=== PATIENT | male | born 1990 | race Caucasian/White ===

== ENCOUNTER 2017-06-12 10:50 | Outpatient (RCR) | payer BC, SELFPAY ==
--- NOTE | 2017-06-15 09:41 | HP.OTFCE_ITS ---
HP OT Functional Capacity Eval - Task Lift Floor (Occasional 1-33% of Day): 50# Floor (Frequent 34-66% of Day): 25# Floor (Constant 67-100% of Day): 10# Floor PDL: Medium Knee (Occasional 1-33% of Day): 50# Knee (Frequent 34-66% of Day): 25# Knee (Constant 67-100% of Day): 10# Knee PDL: Medium Waist (Occasional 1-33% of Day): 50# Waist (Frequent 34-66% of Day): 25# Waist (Constant 67-100% of Day): 10# Waist PDL: Medium Shoulder (Occasional 1-33% of Day): 30# Shoulder (Frequent 34-66% of Day): 15# Overhead (Occasional 1-33% of Day): 30# Overhead (Frequent 34-66% of Day): 15# - Work Activity/Posture Bending: Frequent Ability (34-66% of day) Squatting: Frequent Ability (34-66% of day) Kneeling: Occasional Ability (1-33% of day) Reaching out: Frequent Ability (34-66% of day) Reaching up: Frequent Ability (34-66% of day) Sitting: Frequent Ability (34-66% of day) Walking: Frequent Ability (34-66% of day) Standing: Frequent Ability (34-66% of day) - Reference Duration Sedentary Sedentary Light Light Light Medium Medium Medium Heavy Very Heavy Heavy Occasional (0-33% of day) Frequent (34-66% of day) Constant (67-100% of day) 10 # Negligible Negligible 15 # 8 # Negligible 20 # 10# Negli. 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 Left side more affected than right - more LE than UE. No other medical dx reported. Due to pts recent graduation from college- he had no need for a drivers license and now that he has been working he is ready to get his license- Pt reports he has no restrictions - Diagnoses Diagnoses: CP at - Symptoms Symptoms: LE tightness hamstrings - Pain Pain: denies - Work History Work History: pt is employed at [employer]- pt states he has worked there for a year. He reports she works 10 hour days and does work extra- he states his average work week is 50-60 hours. pt states he is on his feet a lot during the day and states no difficulty. Pt has no accomidations at work, no need for accomidation. 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 pt states there is one entry step. Pt reports he resides in the basement and has 15 steps to get to his room- he reports no difficutly- pt reports he is ind, with all of his bathing/dressing tasks. Pt states he does assist with cleaning, cooking and laundry. states he does carry his own laundry up and down the steps to the laundry room. - Physical Examination ROM: Noted pt demonstrates with bilateral hip flex to 100 degrees in sitting this is WFL. pt demonstrates bilateral knee flex to 100 degrees in in sitting this demo. ROM is WFL. Bilateral ankle ROM is WFL. Strength: Pt demonstrating MMT 5/5 grossly throughout. 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 Strength Average: 81.66 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 Strength Percentile: 5% Left Tar Distributor Operator Strength Average: 75.00 Left Tar Distributor Operator Strength Percentile: 6% Right Lateral Pinch Average: 19.33 Right Lateral Pinch Percentile: 10% Left Lateral Pinch Average: 18.00 Left Lateral Pinch Percentile: 25% Right Tripod Pinch Average: 16.00 Right Tripod Pinch Percentile: 10% Left Tripod Pinch Average: 14.00 Left Tripod Pinch Percentile: < 10% Sensation: denies Fine Motor: denies Balance: No loss of balance noted - Non Material Handling Activities Bending: Pt demo the ability to bend forward three times, ten times and ten times rapidly. pt can bend forward on a frequent bases. Squatting: Pt demo the ability to squat three times, ten times and ten times rapidly. pt can squat on a frequent basis. Kneeling: Pt demo the ability to kneel three times. Pt can kneel on a occasional basis. Reaching out/up: Pt demo the ability to reach up/out three times, ten times and ten times rapidly while sitting pt can perform on a frequent basis. Walking: Pt demo the ability to ambulate for 15min and could have ambulated longer- pt ambulates with a Standing: pt demo the ability to stand for 10min with no expressed or apparent discomfort Sitting: Pt demo the ability to sit for 40 min with no expressed or apparent discomfort. Climbing Stairs: pt ascended and descended 10 steps with a reciprical step pattern- - Dynamic Occasional Lifting Capacity Floor Lift: pt demo the ability to lift 50# maximally from this level Knee Lift: pt demo the ability to lift 50# maximally from this level Waist Lift: pt demo the ability to lift 50# maximally from this level Shoulder Lift: pt demo the ability to lift 30# maximally from this level Overhead Lift: pt demo the ability to lift 30# maximally from this level
== END 2017-06-12 19:00 | disposition home or self-care (01) ==
LOC: OT 10:50
PROVIDERS: Family Provider Family Medicine; PCP Family Medicine; Visit Provider Family Medicine
DX: G80.9 Cerebral palsy, unspecified (principal)
CPT/HCPCS: 97750